=== PATIENT | female | born 1960 | race Caucasian/White ===

== ENCOUNTER 2019-01-15 13:14 | Emergency (ER) | payer BC, OTHER ==
[2019-01-15] MEDS ORDERED: fentaNYL 250 MCG/5 ML SDV IVPUSH ONE (13:32)
--- NOTE | 2019-01-15 13:38 | EDM.PDOC ---
ED HPI GENERAL MEDICAL PROBLEM - General Chief Complaint: Upper Extremity Injury/Pain Stated Complaint: injured,right wrist Time Seen by Provider: 01/15/19 13:20 Source of Information: Reports: Patient History Limitations: Reports: No Limitations - History of Present Illness INITIAL COMMENTS - FREE TEXT/NARRATIVE: This patient presents to the ED with an obvious deformity of the right forearm following a fall. Patient states she slipped and fell on some ice while walking in a parking lot. She is complaining of pain in her arm. She denies other injuries or concerns. Onset: Today, Sudden Onset Date: 01/15/19 Onset Time: 13:15 Location: Reports: Upper Extremity, Right Quality: Reports: Burning, Stabbing, Throbbing Improves with: Reports: Immobilization Worsens with: Reports: Movement Associated Symptoms: Reports: No Other Symptoms - Related Data Allergies Allergy/AdvReac Type Severity Reaction Status Date / Time Anesthetics - Terrie Type- Allergy Other Verified 01/15/19 14:11 Parabens Home Meds: Home Meds NK [No Known Home Meds] 01/15/19 [History] Review of Systems - Review of Systems Review Of Systems: ROS reveals no pertinent complaints other than HPI. Musculoskeletal: Reports: Arm Pain ED EXAM, GENERAL - Physical Exam Exam: See Below Exam Limited By: No Limitations General Appearance: Alert, Moderate Distress Eye Exam: Bilateral Eye: PERRL Ears: Normal External Exam Nose: Normal Inspection Throat/Mouth: Normal Inspection Head: Atraumatic, Normocephalic Neck: Supple, Non-Tender, Full Range of Motion Respiratory/Chest: No Respiratory Distress, Lungs Clear, Normal Breath Sounds, No Accessory Muscle Use Cardiovascular: Normal Peripheral Pulses, Regular Rate, Rhythm Extremities: Other (Obvious deformity to right forearm; moderate swelling and bruising noted around deformity. Distal CMS intact.) Neurological: Alert, Oriented Psychiatric: Normal Affect, Normal Mood Skin Exam: Warm, Dry ED TRAUMA PROCEDURES - Splinting Right Upper Extremity Pre-Procedure NV Status: Normal Post-Procedure NV Status: Normal Splint Material: Fiberglass Splint Design: Other (sugar tongs) Applied & Form Fitted By: Provider Provider Post-Splint Application NV Check: NV Status Normal, Good Position Complications: No Course - Orders/Labs/Meds Orders: Active Orders 24 hr Category Date Time Status Wrist 2V Rt [CR] Stat Exams 01/15/19 13:35 Ordered Meds: Medications Discontinued Medications Generic Name Dose Route Start Last Admin Trade Name Kojo PRN Reason Stop Dose Admin Fentanyl 50 mcg 01/15/19 13:32 01/15/19 14:56 Sublimaze IVPUSH 01/15/19 13:33 Not Given ONETIME ONE Fentanyl 50 mcg 01/15/19 13:40 01/15/19 14:45 Sublimaze IVPUSH 01/15/19 13:41 50 mcg ONETIME ONE Administration Fentanyl 100 mcg 01/15/19 13:47 01/15/19 13:50 Sublimaze IVPUSH 01/15/19 13:48 100 mcg ONETIME ONE Administration Fentanyl Confirm 01/15/19 14:49 01/15/19 14:59 Sublimaze Administered 01/15/19 14:50 Not Given Dose 100 mcg .ROUTE .STK-MED ONE - Re-Assessments/Exams Free Text/Narrative Re-Assessment/Exam: 01/15/19 15:42 This patient presents for evaluation of wrist pain after a fall. CMS is intact distally in the extremity. X-rays reveal displaced fractures of both the right radius and ulna. I spoke with Dr. Trevino at [facility] after he reviewed the x-rays. He suggested placing the patient in a sugar tongs splint with mild traction from finger traps. He will see the patient next week to manage definitive care.Splint was placed as noted above, and splint and fracture precautions for home. The patient was given Hydrocodone for severe pain at home and supportive care instructions were discussed. Close follow up with Dr. Trevino is indicated on January 18. The patient's exam including remaining upper extremity exam is otherwise normal at this time and no further trauma workup is needed at this time. She left with complete understanding and agreement with this plan and no other complaints. Departure - Departure Time of Disposition: 15:30 Disposition: Home, Self-Care 01 Condition: Good Clinical Impression: Fracture of radius, Fracture of humerus, Forearm fractures, both bones, closed - Discharge Information *PRESCRIPTION DRUG MONITORING PROGRAM REVIEWED*: Not Applicable *COPY OF PRESCRIPTION DRUG MONITORING REPORT IN PATIENT GURDEEP: Not Applicable Instructions: Cast or Splint Care, Adult, [id number], Forearm Fracture, Easy- to-Read Referrals: PCP,None [Primary Care Provider] - Forms: ED Department Discharge Additional Instructions: Call [facility] on January 17 to scheduled an appointment. Their number is . Their office opens at 8 am. The meat specialist consulted was Dr. Trevino. - My Orders Last 24 Hours: My Active Orders 01/15/19 13:35 Wrist 2V Rt [CR] Stat - Assessment/Plan Last 24 Hours: My Active Orders 01/15/19 13:35 Wrist 2V Rt [CR] Stat
[2019-01-15] MEDS: fentaNYL 100 MCG/2 ML SDV IVPUSH ONE ×2 (13:40→14:45)
[2019-01-15] MEDS ORDERED: fentaNYL 100 MCG/2 ML SDV IVPUSH ONE (13:47)
[2019-01-15] MEDS ORDERED: Acetaminophen/HYDROcodone 325-5 MG Tab ONE (13:50)
[2019-01-15] MEDS ORDERED: fentaNYL 100 MCG/2 ML SDV ONE (14:49)
--- NOTE | 2019-01-18 07:43 | CR ---
DATE OF SERVICE: 01/15/19 CLINICAL DATA: Pain. RIGHT WRIST: There is an impacted, comminuted intra-articular fracture through the distal radius with dorsal displacement of the distal fragments with respect to the proximal. There is also a comminuted fracture involving the distal ulna and ulnar styloid with dorsal angulation and displacement of the distal fragments with respect to the proximal. No other acute abnormalities. [id number] [facility]
== END 2019-01-15 15:30 | disposition home or self-care (01) ==
LOC: LB.ED 13:14
DX: S52.571A Other intraarticular fracture of lower end of right radius, initial encounter for closed fracture (principal); S52.611A Displaced fracture of right ulna styloid process, initial encounter for closed fracture; S42.301A Unspecified fracture of shaft of humerus, right arm, initial encounter for closed fracture; Z88.6 Allergy status to analgesic agent; W00.0XXA Fall on same level due to ice and snow, initial encounter
CPT/HCPCS: 29125; 73100; 99283; A9270; J3010; 96374

== ENCOUNTER 2019-04-02 13:40 | Emergency (ER) | payer BC, OTHER ==
[2019-04-02] MEDS ORDERED: fentaNYL 12 MCG/HR Transdermal Patch ONE (14:51)
[2019-04-02] MEDS ORDERED: Ketorolac 30 MG/ML SDV IM ONE (14:57)
[2019-04-02] MEDS ORDERED: HYDROmorphone 2 MG/ML SDV IM ONE (14:57)
[2019-04-02] MEDS ORDERED: Acetaminophen/oxyCODONE 325-5 MG Tab ONE (15:00)
[2019-04-02] MEDS ORDERED: fentaNYL 12 MCG/HR Transdermal Patch TRDERM SCH (15:00)
[2019-04-02] MEDS ORDERED: HYDROmorphone 2 MG/ML SDV ONE (15:03)
[2019-04-02] MEDS ORDERED: Ketorolac 30 MG/ML SDV ONE (15:03)
--- NOTE | 2019-04-04 07:55 | EDM.PDOC ---
ED HPI GENERAL MEDICAL PROBLEM - General Chief Complaint: Back Pain or Injury Stated Complaint: pain Time Seen by Provider: 04/02/19 14:00 Source of Information: Reports: Patient History Limitations: Reports: No Limitations - History of Present Illness INITIAL COMMENTS - FREE TEXT/NARRATIVE: This is a 59yo F with increasing lower back pain. Patient states it has worsened so much she is having difficulty with walking or standing. She denies other health concerns. She has had prior back issues with prior vertebral compression fractures and imaging from 2013, 2014, and 2015. She has seen a Neurosurgeon many years ago and they did not feel she was a surgical candidate. Onset: Gradual Duration: Day(s):, Getting Worse Location: Reports: Back Quality: Reports: Ache Severity: Severe Improves with: Reports: None Worsens with: Reports: Movement Associated Symptoms: Reports: No Other Symptoms Lower Back Pain Score (Numeric/FACES): 9 - Related Data Allergies Allergy/AdvReac Type Severity Reaction Status Date / Time No Known Allergies Allergy Verified 01/15/19 16:39 Home Meds: Home Meds oxyCODONE 10 mg PO BID 04/02/19 [History] Past Medical History HEENT History: Reports: Impaired Vision [employer] History: Reports: Other Musculoskeletal History: Hx of several fractures. Back x 2, hx fx arm x 3 - Past Surgical History Musculoskeletal Surgical History: Reports: Other (See Below) Other Musculoskeletal Surgeries/Procedures:: Right wrist fracture - ORIF, 2019 Social & Family History - Family History Family Medical History: Noncontributory - Tobacco Use Smoking Status *Q: Never Smoker Second Hand Smoke Exposure: No - Caffeine Use Caffeine Use: Reports: Coffee - Recreational Drug Use Recreational Drug Use: No ED ROS GENERAL - Review of Systems Review Of Systems: ROS reveals no pertinent complaints other than HPI. ED EXAM,LOWER BACK PAIN/INJURY - Physical Exam Exam: See Below Exam Limited By: No Limitations General Appearance: Alert, WD/WN, No Apparent Distress Ears: Normal External Exam Nose: Normal Inspection Throat/Mouth: Normal Inspection Head: Atraumatic, Normocephalic Neck: Normal Inspection Respiratory/Chest: No Respiratory Distress Cardiovascular: Normal Peripheral Pulses GI/Abdominal: Normal Bowel Sounds Back Exam: Decreased Range of Motion, Muscle Spasm, Paraspinal Tenderness, Vertebral Tenderness Extremities: Normal Inspection Neurological: Alert, Normal Mood/Affect, Normal Dorsiflexion Psychiatric: Normal Affect, Normal Mood Skin Exam: Warm, Dry, Intact Course - Vital Signs Last Recorded V/S: Last Vital Signs Temp 36.7 C 04/02/19 14:05 Pulse 94 04/02/19 14:05 Resp 16 04/02/19 14:05 BP 118/69 04/02/19 14:05 Pulse Ox 98 04/02/19 14:05 - Orders/Labs/Meds Meds: Medications Discontinued Medications Generic Name Dose Route Start Last Admin Trade Name Kojo PRN Reason Stop Dose Admin Fentanyl Confirm 04/02/19 14:51 04/02/19 14:58 Duragesic Administered 04/02/19 14:52 Not Given Dose 12 mcg .ROUTE .STK-MED ONE Fentanyl 12 mcg 04/02/19 15:00 04/02/19 14:59 Duragesic TRDERM 12 mcg Q72H MACI Administration Hydromorphone HCl 1 mg 04/02/19 14:57 04/02/19 15:00 Dilaudid IM 04/02/19 14:58 1 mg ONETIME ONE Administration Hydromorphone HCl Confirm 04/02/19 15:03 04/02/19 15:00 Dilaudid Administered 04/02/19 15:04 Not Given Dose 2 mg .ROUTE .STK-MED ONE Ketorolac Tromethamine 30 mg 04/02/19 14:57 04/02/19 15:00 Toradol IM 04/02/19 14:58 30 mg ONETIME ONE Administration Ketorolac Tromethamine Confirm 04/02/19 15:03 04/02/19 15:01 Toradol Administered 04/02/19 15:04 Not Given Dose 30 mg .ROUTE .STK-MED ONE Departure - Departure Time of Disposition: 15:00 Disposition: Home, Self-Care 01 Condition: Good Clinical Impression: Back pain Qualifiers: Back pain location: low back pain Chronicity: acute Back pain laterality: bilateral Sciatica presence: unspecified whether sciatica present Qualified Code (s): M54.5 - Low back pain - Discharge Information Instructions: Acetaminophen; Oxycodone tablets, Calcitonin nasal spray, Low Back Strain Rehab-SportsMed Referrals: PCP,None [Primary Care Provider] - Forms: ED Department Discharge Care Plan Goals: Follow up in clinic in 1 or two weeks. Use warm and cold packs, whichever feels better. - Problem List & Annotations (1) Back pain SNOMED Code(s): 095440758 Code(s): M54.9 - DORSALGIA, UNSPECIFIED Status: Acute Qualifiers: Back pain location: low back pain Chronicity: acute Back pain laterality : bilateral Sciatica presence: unspecified whether sciatica present Qualified Code(s): M54.5 - Low back pain - Problem List Review Problem List Initiated/Reviewed/Updated: Yes - Assessment/Plan Plan: Counseled on supportive/conservative care and management. Discussed close f/u in clinic and repeat imaging as needed and f/u records of images from [id number] for progression as we only have 2014 and current lumbar xrays. Discussed f/u with Neurosurgery as well. Counseled on narcotics use and addiction prevention. F/u as directed.
== END 2019-04-02 15:11 | disposition home or self-care (01) ==
LOC: LB.ED 13:40
DX: M54.5 Low back pain (principal)
CPT/HCPCS: 96372; 99283; A9270-GY; J1170; J1885

== ENCOUNTER 2019-10-18 19:20 | Emergency (ER) | payer OTHER, BC ==
[2019-10-18] MEDS ORDERED: Amoxicillin/Clavulanate K 875-125 MG Tab ONE (19:45)
[2019-10-18] MEDS ORDERED: cefTRIAXone 1 GM Vial IM ONE (19:51)
--- NOTE | 2019-10-18 21:39 | ER ---
HPI: A 59-year-old lady here with complaints of not feeling well. She underwent a rotator cuff repair to the right shoulder on October 07. She states that Thursday she started to have episodes of chills and fever. She states there seems to be a little more pain and redness involving the shoulder area around one of the small laparoscopic incision sites. The patient did talk to her surgeon yesterday, and at that point she was feeling a little better, but now she tells me that she is once again getting worse. She is concerned about infection. She has not had any problems with nausea, vomiting, coughing, or GI symptoms. OBJECTIVE: GENERAL APPEARANCE: The patient is awake and alert. No obvious distress. VITAL SIGNS: Reviewed. She is afebrile. EXTREMITIES: Examining the right shoulder reveals a 3 small laparoscopic sites are evaluated. The one on the anterior medial side of the shoulder is irritated and there is a mild macular erythematous area radiating out 3 to 4 cm from this spot that is slightly warm to touch. This is consistent with an early stage cellulitis infection. DIAGNOSIS: Cellulitis. TREATMENT PLAN: I will give the patient Rocephin 1 g IM and start her on Augmentin. She is to take Tylenol or ibuprofen as needed and monitor her symptoms very closely. If her condition is not improving, she is to call her surgeon even if it is tomorrow on . The patient agrees with the treatment plan. If we could help her in any other way, she is advised to contact us as needed as well. CRS/MODL /[id number]
== END 2019-10-18 20:04 | disposition home or self-care (01) ==
LOC: LB.ED 19:20
DX: L03.113 Cellulitis of right upper limb (principal)
CPT/HCPCS: 96372; 99283; A9270-GY; J0696

== ENCOUNTER 2020-07-20 19:37 | Emergency (ER) | payer BC ==
--- NOTE | 2020-07-22 10:27 | CT ---
Date of Service: 07/20/20 Clinical Data: Coughing up blood ENHANCED CHEST CT: Multislice acquisition through the chest with IV contrast was performed. No priors. No evidence of PE. No pneumothorax. No pleural effusions. No aortic aneurysm or dissection. The lungs are clear. The heart size is normal. No significant pericardial effusion. No hilar or mediastinal adenopathy. There is a small hiatal hernia. There is a small subcentimeter low-density lesion on the dome of the liver. It is too small to adequately characterize. There are multiple partial compression fractures in the mid and lower thoracic spine, age indeterminate. No focal lytic or blastic bone lesions. [id number] [facility]
--- NOTE | 2020-07-22 13:50 | ER ---
REASON FOR EMERGENCY ROOM VISIT: Coughing up blood. HISTORY: This otherwise healthy 60-year-old underwent a right total hip arthroplasty yesterday in [place]. Apparently, they attempted to do this under epidural or spinal anesthesia, but they were unable to accomplish this, therefore she did require intubation and general anesthesia. Postoperatively, she had no problems and was discharged, ambulating well and relatively pain free. She states that since her operation, she has had a "sore throat" and she did have some soreness over her lateral chest wall that she felt was due to positioning on the operating table. She denied any shortness of breath or chest pain, but had an episode of coughing where she expectorated 1 or 2 mL sized blood clot. Again, she did not have any respiratory distress, diaphoresis, chest pain, or shortness of breath. PAST MEDICAL HISTORY: Largely unremarkable, this was reviewed. Please see EMR. MEDICATIONS: Include aspirin p.r.n., tramadol 50 mg p.o. q.4 hours p.r.n. pain, pantoprazole 40 mg p.o. daily, acetaminophen p.r.n. ALLERGIES: NONE TO MEDICATIONS. REVIEW OF SYSTEMS: Pertinent positives and negatives as listed in the HPI. PHYSICAL EXAMINATION: GENERAL: A pleasant woman in no acute distress. VITAL SIGNS: She is afebrile. Heart rate is 81, blood pressure 90/67, respiratory rate 16, O2 sats 96% on room air. HEENT: Unremarkable. Oropharynx is normal. No pharyngeal erythema is noted. No exudates. NECK: Supple. No adenopathy. Trachea is midline. CHEST: Clear to auscultation with no wheezes, rhonchi, or rales and good air exchange bilaterally. CARDIAC: Regular rate without murmur. ABDOMEN: Soft and nontender. Obese. No hepatosplenomegaly is noted. EXTREMITIES: She has a slight increased lower leg edema on the right, which is her operated side. Normal pulses. Her dressing is dry. LABORATORY DATA: CBC shows no leukocytosis and a hemoglobin of 11.5. Her PT and INR are 10.4 and 1.0. CMP shows normal electrolytes and no significant abnormalities. A 12-lead EKG showed no acute changes and normal sinus rhythm. Because of the presentation and because she had recent surgery, I felt compelled to rule out pulmonary embolus, so we proceeded with a CT angiogram to rule out pulmonary embolus, and this was negative with no acute findings and nothing to suggest pulmonary embolus. IMPRESSION: Hemoptysis secondary to minor trauma from intubation. PLAN: I informed her of the results and told her to gargle with salt water or mouthwash as needed. If she has any problems with chest pain, breathing, or any other difficulties that she should feel free to contact us again. All questions were answered. She understands and agrees with this plan. NATALI /[id number]
== END 2020-07-20 21:49 | disposition home or self-care (01) ==
LOC: MERGE 19:37 → LB.ED 19:37
DX: R04.2 Hemoptysis (principal)
CPT/HCPCS: 36415; 71260; 80053; 85025; 85610; 93005; 99284-25

== ENCOUNTER 2022-05-16 23:11 | Emergency (ER) | payer BC, MEDICAID ==
[2022-05-16] MEDS: Aspirin 81 MG Tab.Chew PO ONE (23:21)
[2022-05-16] MEDS ORDERED: Ibuprofen 800 MG Tab ONE (23:30)
[2022-05-16] MEDS ORDERED: Cyclobenzaprine 10 MG Tab ONE (23:30)
[2022-05-16] MEDS ORDERED: Acetaminophen/oxyCODONE 325-5 MG Tab ONE (23:30)
[2022-05-16] MEDS: HYDROmorphone 2 MG/ML Syringe IVPUSH ONE (23:30)
[2022-05-17] MEDS: Ketorolac 30 MG/ML SDV IVPUSH ONE (00:47)
[2022-05-17] MEDS: HYDROmorphone 2 MG/ML Syringe IVPUSH ONE (00:47)
== END 2022-05-17 00:40 | disposition home or self-care (01) ==
LOC: LB.ED 23:11
DX: R07.89 Other chest pain (principal); Z79.899 Other long term (current) drug therapy
CPT/HCPCS: 36415; 71100-LT; 72070; 80053; 84484; 85025; 93005; 93010; 96374; 96375; 96376; 99282; 99285-25; A9270-GY; J1170; J1885